=== PATIENT | female | born 1945 | race Caucasian/White ===

== ENCOUNTER → 2016-10-29 | Outpatient (CLI) | payer MEDICARE ==
--- NOTE | 2016-10-31 07:28 | MM ---
Reason for exam: screening (asymptomatic). Last mammogram was performed 1 year ago. History: Patient is postmenopausal, has history of breast cancer at age 58, and is nulliparous. Lumpectomy of the right breast, 2003. Took estrogen for 7 years. Physical Findings: A clinical breast exam by your physician is recommended on an annual basis and results should be correlated with mammographic findings. MG 3D Screening Mammo W/Cad Bilateral CC and MLO view(s) were taken. Prior study comparison: October 26, 2015, bilateral MG 3d diag mammo w/cad [facility]. October 18, 2014, bilateral MG diagnostic mammo w CAD [facility]. October 15, 2013, bilateral MG diagnostic mammo w CAD [facility]. There are scattered fibroglandular densities. Finding #1: There is a stable architectural distortion in the upper quadrant, central position of the right breast, consistent with known lumpectomy. Finding #2: There are typically benign vascular, dystrophic, round calcifications in both breasts. There is a chronic nodularity in the left breast. There is no discrete abnormality. ASSESSMENT: Benign, BI-RAD 2 RECOMMENDATION: Routine screening mammogram of both breasts in 1 year.
== END | disposition home or self-care (01) ==
LOC: RADMAMWWP 12:38
PROVIDERS: ATTEND Internal Medicine
DX: Z12.31 Encounter for screening mammogram for malignant neoplasm of breast (principal)
CPT/HCPCS: 77063; G0202

== ENCOUNTER 2017-06-27 15:35 | Emergency (ER) | payer MEDICARE ==
[2017-06-27 15:48] VITALS: RESP 18; TEMP 98
--- NOTE | 2017-06-27 16:33 | ED ---
General Adult HPI - General Chief complaint: Fall Stated complaint: FALL, BOTH HIPS, LEGS AND ANKLE INJURY Time Seen by Provider: 06/27/17 16:16 Source: patient, RN notes reviewed Mode of arrival: wheelchair Limitations: no limitations - History of Present Illness Initial comments: 71-year-old female presents to the emergency department for a chief complaint of fall 2 days ago. Patient states she was walking and her knee gave out. She states she fell on her right-sided then her left side. Patient states her right side hip hurts the most. Patient denies hitting her head or losing conscious. Patient states she has lower back pain but that is chronic. Patient also has pain in the right ankle and right knee. She has iced the right ankle multiple times. She is taking Tylenol for pain as that is all she can have. Patient denies any pain in her neck. Patient has no other complaints at this time including shortness of breath, chest pain, abdominal pain, nausea or vomiting, headache, or visual changes. - Related Data Home Medications Medication Instructions Recorded Confirmed Aspirin 81 mg PO DAILY 07/12/14 07/12/14 Atorvastatin [Lipitor] 40 mg PO DAILY 07/12/14 07/12/14 Clopidogrel [Plavix] 75 mg PO DAILY 07/12/14 07/12/14 Dabigatran [Pradaxa] 150 mg PO BID 07/12/14 07/12/14 FLUoxetine HCL [PROzac] 20 mg PO DAILY 07/12/14 07/12/14 Levothyroxine Sodium [Levoxyl] 125 mcg PO DAILY 07/12/14 07/12/14 Metoclopramide HCl [Reglan] 5 mg PO DAILY 07/12/14 07/12/14 Nitroglycerin Sl Tabs [Nitrostat] 0.4 mg SUBLINGUAL Q5M PRN 07/12/14 07/12/14 Ondansetron [Zofran] 4 mg PO Q12HR PRN 07/12/14 07/12/14 Pantoprazole Sodium [Protonix] 40 mg PO DAILY 07/12/14 07/12/14 Sotalol [Betapace] 60 mg PO TID 07/12/14 07/12/14 glipiZIDE [Glucotrol] 2.5 mg PO AC-BID 07/12/14 07/12/14 metFORMIN HCL [Glucophage] 500 mg PO BID 07/12/14 07/12/14 Allergies Allergy/AdvReac Type Severity Reaction Status Date / Time codeine Allergy Swelling Verified 06/27/17 15:47 Penicillins Allergy Swelling Verified 06/27/17 15:47 Review of Systems ROS Statement: Those systems with pertinent positive or pertinent negative responses have been documented in the HPI. ROS Other: All systems not noted in ROS Statement are negative. Past Medical History Past Medical History: Atrial Flutter, Diabetes Mellitus, GERD/Reflux, Hyperlipidemia, Myocardial Infarction ([place]), Thyroid Disorder History of Any Multi-Drug Resistant Organisms: None Reported Past Surgical History: Ablation, Adenoidectomy, Heart Catheterization With Stent , Hysterectomy, Orthopedic Surgery, Tonsillectomy Past Psychological History: No Psychological Hx Reported Smoking Status: Never smoker Past Alcohol Use History: Occasional Past Drug Use History: None Reported General Exam - General Exam Comments Initial Comments: Right ankle: Right ankle appears swollen and erythematous. Tenderness to the medial and lateral malleoli. No tenderness in the foot. Patient has limited flexion and extension of the right ankle. Pedal pulses strong with doppler. Cap refill < 2 secs. Right knee: no swelling or ecchymosis noted in the right knee. Tenderness posterior to the knee. Flexion 30 degrees and full extension. Right hip: limited ROM in the right hip. No swelling, ecchymosis. No tenderness to the hip. Slight right calf tenderness. No redness or swelling. Left shoulder: Full ROM including abduction adduction flexion extension and rotation. No swelling or ecchymosis. No tenderness. Radial pulse 2+. Limitations: no limitations General appearance: alert, in no apparent distress Head exam: Present: atraumatic, normocephalic, normal inspection Eye exam: Present: normal appearance, PERRL, EOMI. Absent: scleral icterus, conjunctival injection, periorbital swelling ENT exam: Present: normal external ear exam (Neg raccoon sign) Neck exam: Present: normal inspection, full ROM. Absent: tenderness, meningismus, lymphadenopathy Respiratory exam: Present: normal lung sounds bilaterally. Absent: respiratory distress, wheezes, rales, rhonchi, stridor Cardiovascular Exam: Present: regular rate, normal rhythm, normal heart sounds. Absent: systolic murmur, diastolic murmur, rubs, gallop, clicks Back exam: Present: normal inspection, full ROM. Absent: tenderness (No tenderness in the lumbar spine), paraspinal tenderness, vertebral tenderness Neurological exam: Present: alert, oriented X3 Psychiatric exam: Present: normal affect, normal mood Course Vital Signs 06/27/17 15:46 Temperature 98.0 F Pulse Rate 80 Respiratory 18 Rate Blood Pressure 129/59 O2 Sat by Pulse 99 Oximetry Medical Decision Making - Medical Decision Making 71-year-old female presents to the emergency department for chief complaint of fall 2 days ago. Patient states her right knee gave out and she fell onto her right side. Patient complains of pain in her right ankle, knee, hip, and left shoulder. On exam patient has ecchymosis and swelling of the right ankle with limited ROM. Patient also has limited ROM of the right knee and hip. No tenderness to the knee or hip. Neurovascular intact in the RLE. Left shoulder has full ROM without tenderness. X-ray of the right ankle, tib-fib, knee, hip and pelvis show no acute fractures or dislocations. Patient's ankle was wrapped with an Munir wrap. I offered to splint it but she refused. I offered crutches but she did not want crutches. She will follow up with orthopedics in one to 2 days. She will take Tylenol for pain. She will return to the emergency department if symptoms worsen. Disposition Clinical Impression: Fall Disposition: HOME SELF-CARE Condition: Good Instructions: Ankle Sprain (ED), Fall Prevention for Older Adults (ED) Additional Instructions: Please take Tylenol for pain relief. Please remember to rest, ice, and elevate the right ankle. Follow-up with orthopedics or primary care in 1-2 days. Is patient prescribed a controlled substance at d/c from ED?: No Referrals: Merritt Hyatt MD [Primary Care Provider] - 1-2 days Silas Blake MD [Medical Doctor] - 1-2 days Time of Disposition: 18:08
--- NOTE | 2017-06-27 17:29 | US ---
EXAMINATION TYPE: US venous doppler duplex LE RT DATE OF EXAM: 06/27/2017 5:06 PM COMPARISON: NONE CLINICAL HISTORY: Pain. rt foot and ankle pain and swelling SIDE PERFORMED: Right TECHNIQUE: The lower extremity deep venous system is examined utilizing real time linear array sonog xiomara with graded compression, doppler sonography and color-flow sonography. VESSELS IMAGED: External Iliac Vein (EIV) Common Femoral Vein Deep Femoral Vein Greater Saphenous Vein * Femoral Vein Popliteal Vein Proximal Calf Veins (* superficial vessels) Right Leg: Negative for DVT Grayscale, color doppler, spectral doppler imaging performed of the deep veins of the right lower ext remity. There is normal flow, compressibility, vascular waveforms. IMPRESSION: No ultrasound evidence for acute DVT in the right lower extremity.
--- NOTE | 2017-06-27 17:31 | XR ---
EXAMINATION TYPE: XR tibia fibula RT, XR ankle complete RT DATE OF EXAM: 06/27/2017 CLINICAL HISTORY: Pain and swelling after fall injury. TECHNIQUE: Two views of the right leg are obtained. 3 views of right ankle are acquired. COMPARISON: None. FINDINGS: There is no acute fracture or dislocation seen in the right tibia or fibula. The visualiz ed right knee joint appears within normal limits. Mild diffuse subcutaneous edema is present. Images of the right ankle show mild to moderate diffuse subcutaneous edema. No acute fracture or disl ocation is evident. Ankle mortise symmetry is preserved. IMPRESSION: There is no acute fracture or dislocation seen in the right ankle or the right leg.
--- NOTE | 2017-06-27 17:36 | XR ---
EXAMINATION TYPE: XR Hip RT and AP Pelvis DATE OF EXAM: 06/27/2017 COMPARISON: NONE HISTORY: Pelvic and right hip pain after fall injury. TECHNIQUE: A single AP view of the pelvis is obtained. Two views of the right hip are obtained. FINDINGS: Osseous structures are demineralized. There is no acute fracture/dislocation evident in th e pelvis. The hip and sacroiliac joints appear symmetric and unremarkable. Vascular calcification ov erlies the pelvis. Two views of right hip show no acute fracture or dislocation. No focal lytic or sclerotic lesion see n in the proximal right femur. The overlying soft tissue is unremarkable. IMPRESSION: There is no acute fracture or dislocation in the pelvis or right hip.
[2017-06-27 18:29] VITALS: BP 138/61; PULSE 82
== END 2017-06-27 18:29 | disposition home or self-care (01) ==
LOC: EC 15:35
DX: M25.571 Pain in right ankle and joints of right foot (principal); M25.471 Effusion, right ankle; M25.561 Pain in right knee; M54.5 Low back pain; I48.92 Unspecified atrial flutter; E11.9 Type 2 diabetes mellitus without complications; K21.9 Gastro-esophageal reflux disease without esophagitis; E78.5 Hyperlipidemia, unspecified; I25.2 Old myocardial infarction; E07.9 Disorder of thyroid, unspecified; Z79.82 Long term (current) use of aspirin; Z79.01 Long term (current) use of anticoagulants; Z79.84 Long term (current) use of oral hypoglycemic drugs; Z79.899 Other long term (current) drug therapy; Z88.0 Allergy status to penicillin; Z88.5 Allergy status to narcotic agent; Z95.5 Presence of coronary angioplasty implant and graft; W19.XXXA Unspecified fall, initial encounter; Y93.01 Activity, walking, marching and hiking
CPT/HCPCS: 73502; 99284

== ENCOUNTER → 2017-10-30 | Outpatient (CLI) | payer MEDICARE ==
--- NOTE | 2017-11-01 08:23 | MM ---
Reason for exam: screening (asymptomatic). Last mammogram was performed 1 year ago. History: Patient is postmenopausal, has history of breast cancer at age 58, and is nulliparous. Lumpectomy of the right breast, 2003. Took estrogen for 7 years. Physical Findings: A clinical breast exam by your physician is recommended on an annual basis and results should be correlated with mammographic findings. MG 3D Screening Mammo W/Cad Bilateral CC, MLO, and XCCL view(s) were taken. Prior study comparison: October 29, 2016, bilateral MG 3d screening mammo w/ cad. October 26, 2015, bilateral MG 3d diag mammo w/cad [facility]. There are scattered fibroglandular densities. There is chronic nodularity in the left breast. Post surgical changes right breast. Stable scattered round calcifications. No significant changes when compared with prior studies. ASSESSMENT: Benign, BI-RAD 2 RECOMMENDATION: Routine screening mammogram of both breasts in 1 year. DRAKE
== END | disposition home or self-care (01) ==
LOC: RADMAMWWP 10:36
PROVIDERS: ATTEND Internal Medicine
DX: Z12.31 Encounter for screening mammogram for malignant neoplasm of breast (principal); Z85.3 Personal history of malignant neoplasm of breast
CPT/HCPCS: 77063; 77067

== ENCOUNTER → 2018-12-01 | Outpatient (CLI) | payer MEDICARE ==
--- NOTE | 2018-12-02 14:58 | MM ---
Reason for exam: screening (asymptomatic). Last mammogram was performed 1 year and 1 month ago. History: Patient is postmenopausal, has history of breast cancer at age 58, and is nulliparous. Lumpectomy of the right breast, 2003. Took estrogen for 7 years. Physical Findings: A clinical breast exam by your physician is recommended on an annual basis and results should be correlated with mammographic findings. MG 3D Screening Mammo W/Cad Bilateral CC and MLO view(s) were taken. Prior study comparison: October 30, 2017, bilateral MG 3d screening mammo w/cad. October 29, 2016, bilateral MG 3d screening mammo w/cad. There are scattered fibroglandular densities. No significant changes when compared with prior studies. ASSESSMENT: Benign, BI-RAD 2 RECOMMENDATION: Routine screening mammogram of both breasts in 1 year.
== END | disposition home or self-care (01) ==
LOC: RADMAMWWP 10:50
PROVIDERS: ATTEND Internal Medicine
DX: Z12.31 Encounter for screening mammogram for malignant neoplasm of breast (principal)
CPT/HCPCS: 77063; 77067

== ENCOUNTER → 2019-03-03 | Outpatient (CLI) | payer MEDICARE ==
--- NOTE | 2019-03-03 13:03 | BD ---
EXAMINATION TYPE: Axial Bone Density DATE OF EXAM: 03/03/2019 COMPARISON: 2008 CLINICAL HISTORY: M 87.9 Height: 65.5 Weight: 169 FRAX RISK QUESTIONS: Alcohol (3 or more units per day): no Family History (Parent hip fracture): yes, father Glucocorticoids (More than 3mos): yes, but seasonal related..rarely uses (Ex: prednisone, prednisolone, methylprednisolone, dexamethasone, and hydrocortisone). History of Fracture in Adulthood: yes Secondary Osteoporosis: 1. Type 1 Diabetes: no 2. Hyperthyroidism: no 3. Menopause before 45: no 4. Malnutrition: no 5. Chronic liver disease: no Rheumatoid Arthritis: no Current Tobacco Use: no RISK FACTORS HISTORY OF: Family History of Osteoporosis: does not think so Active: somewhat; uses walker Diet low in dairy products/other sources of calcium: no Postmenopausal woman: yes Take estrogen and/or progesterone medications: not now How long: over 5 years Lost more than 2 inches in height since high school: unsure, states was a bit over 67 inches at one t [place] Frequent falls: no Poor Health: "under control" with medications Hyperparathyroidism: no Adrenal Insufficiency: no MEDICATIONS: Prednisone or other steroids: yes, inhaler seasonally...not often lately How Long: on & off for about 40 years...more frequent use years ago Thyroid Medications:yes Which medication: Levothyroxine How Long: since about age 33 Osteoporosis Medications: no Additional Medications: heart meds ; Lipitor, sotalol, xeralto, Plavix; Imdur, Lexapro, metformin, vi tamin D Additional History: complete hysterectomy age 48; breast CA age 58; type 2 diabetic; right lower leg fracture; "fatty liver", history of polio EXAM MEASUREMENTS: Bone mineral densitometry was performed using the [employer] System. Bone mineral density as measured about the Lumbar spine is: ----- L1-L4(G/cm2): 1.104 T Score Values are as follows: ----- L2: -1.3 ----- L3: -0.2 ----- L4: -0.1 ----- L1-L4: -0.6 Bone mineral density has: Decreased -7.5% since study of: 12/13/2008 Bone mineral density about the R hip (g/cm2): 0.678 Bone mineral density about the L hip (g/cm2): 0.707 T Score values are as follows: -----R Neck: -2.6 -----L Neck: -2.4 -----R Total: -2.5 -----L Total: -2.1 Bone mineral density has: Decreased -24.8% since study of: 12/13/2008 IMPRESSION: Osteoporosis (T Score less than -2.5). There is increased fracture risk and therapy is usually indicated based on age. Re-Screen 1-2 years. NOTE: T-SCORE=SD OF THE YOUNG ADULT MEAN.
== END | disposition home or self-care (01) ==
LOC: RADBDWWP 10:07
PROVIDERS: ATTEND Internal Medicine
DX: M81.0 Age-related osteoporosis without current pathological fracture (principal); Z79.52 Long term (current) use of systemic steroids
CPT/HCPCS: 77080

== ENCOUNTER → 2020-01-06 | Outpatient (CLI) | payer MEDICARE ==
--- NOTE | 2020-01-07 10:37 | MM ---
Reason for exam: screening (asymptomatic). Last mammogram was performed 1 year and 1 month ago. History: Patient is postmenopausal, has history of breast cancer at age 58, and is nulliparous. Lumpectomy of the right breast, 2003. Took estrogen for 7 years. Physical Findings: A clinical breast exam by your physician is recommended on an annual basis and results should be correlated with mammographic findings. MG 3D Screening Mammo W/Cad Bilateral CC and MLO view(s) were taken. Prior study comparison: December 01, 2018, bilateral MG 3d screening mammo w/cad. October 30, 2017, bilateral MG 3d screening mammo w/cad. There are scattered fibroglandular densities. No significant changes when compared with prior studies. ASSESSMENT: Benign, BI-RAD 2 RECOMMENDATION: Routine screening mammogram of both breasts in 1 year.
== END | disposition home or self-care (01) ==
LOC: RADMAMWWP 13:28
PROVIDERS: ATTEND Internal Medicine
DX: Z12.31 Encounter for screening mammogram for malignant neoplasm of breast (principal)
CPT/HCPCS: 77063; 77067

== ENCOUNTER → 2024-05-05 | Outpatient (CLI) | payer MEDICARE ==
[2024-05-05 19:35] LABS: HCT 35.3 % (37.2-46.3); MCH 33.3 pg (27.0-32.0); MCV 98.1 FL (80.0-97.0); Mean Platelet Volume 10.8 FL (9.5-12.2); Platelet Count 264 X 10*3/uL (140-440); RDW 14.3 % (11.5-14.5)
[2024-05-05 19:36] LABS: Basophils # (A) 0.02 X 10*3/uL (0.00-0.10); Basophils % (A) 0.3 %; Eosinophils # (A) 0.13 X 10*3/uL (0.04-0.35); Eosinophils % (A) 1.9 %; Lymphocytes # (A) 2.25 X 10*3/uL (0.90-5.00); Lymphocytes % (A) 32.1 %; Monocytes # (A) 0.39 X 10*3/uL (0.20-1.00); Monocytes % (A) 5.6 %; NRBC Per 100 WBC 0 X 10*3/uL (0.00-0.01); Neutrophils # (A) 4.17 X 10*3/uL (1.80-7.70); Neutrophils % (A) 59.5 %
[2024-05-05 20:19] LABS: ALT 12 U/L (8-44); AST 18 U/L (13-35); Albumin 3.7 g/dL (3.8-4.9); Albumin/Globulin Ratio 1.32 Ratio (1.60-3.17); Alkaline Phosphatase 84 U/L (41-126); BUN/Creat Ratio 23.22 Ratio (12.00-20.00); Blood Urea Nitrogen 20.9 mg/dL (9.0-27.0); Calcium 9.4 mg/dL (8.7-10.3); Carbon Dioxide 24.3 mmol/L (21.6-31.8); Chloride 104 mmol/L (96-109); Chol/HDL Ratio 3.02 Ratio; Globulin 2.8 g/dL (1.6-3.3); Glucose 127 mg/dL (70-110); LDL Cholesterol,Calculated 76.9 mg/dL (0.0-131.0); Potassium 3.7 mmol/L (3.5-5.5); Sodium 140 mmol/L (135-145); T4, Free (Free Thyroxine) 1.22 ng/dL (0.80-1.80); Total Bilirubin 0.7 mg/dL (0.3-1.2); Total Protein 6.5 g/dL (6.2-8.2)
== END | disposition home or self-care (01) ==
LOC: LABWHC1 13:08
PROVIDERS: ATTEND Internal Medicine
DX: I25.10 Atherosclerotic heart disease of native coronary artery without angina pectoris (principal); I48.0 Paroxysmal atrial fibrillation; E03.9 Hypothyroidism, unspecified; E78.5 Hyperlipidemia, unspecified; E11.9 Type 2 diabetes mellitus without complications; D75.89 Other specified diseases of blood and blood-forming organs
CPT/HCPCS: 36415; 80053; 80061; 82607; 82746; 84439; 84443; 85025